=== PATIENT | female | born 1950 | race Two or more races ===

== ENCOUNTER 2020-03-26 13:05 | Outpatient (CLI) | payer OTHER | END 2020-03-26 13:09 | disposition home or self-care (01) | LOC: RAD 13:05 | PROVIDERS: ATTEND Orthopaedic Surgery | DX: M25.551 Pain in right hip (principal); M54.5 Low back pain ==

== ENCOUNTER → 2020-05-01 08:08 | Outpatient (CLI) | payer OTHER | END | disposition home or self-care (01) | LOC: LAB 08:08 | PROVIDERS: ATTEND Orthopaedic Surgery | DX: E56.1 Deficiency of vitamin K (principal); M85.88 Other specified disorders of bone density and structure, other site; E55.9 Vitamin D deficiency, unspecified ==

== ENCOUNTER 2023-06-25 11:03 | Emergency (ER) | payer OTHER ==
[~2023-06-25] VITALS: Ht 154.9 cm; Wt 72.6 kg
[2023-06-25] MEDS ORDERED: COZAAR50 MG PO (11:50)
[2023-06-25] MEDS ORDERED: METFORMIN HCL850 MG (11:50)
[2023-06-25 13:19] LABS: HEMATOCRIT 41.5 % (36.0-45.00); MEAN CORPUSCULAR HEMOGLOBIN 30.3 pg (27.00-32.0); MEAN CORPUSCULAR HGB CONC 33.7 g/dl (32.0-36.0); PLATELET COUNT 318 K/uL (150-450); RED BLOOD COUNT 4.61 M/uL (4.00-6.00); RED CELL DISTRIBUTION WIDTH 14.7 % (11.5-14.5)
[2023-06-25] MEDS ORDERED: XOPENEX CO1.25 MG/0. IH (14:46)
[2023-06-25] MEDS ORDERED: TUSNEL LIQUID178 ML PO (14:46)
[2023-06-25] MEDS ORDERED: ZITHROMAX500 MG PO (14:46)
== END 2023-06-25 14:54 | disposition home or self-care (01) ==
LOC: ER 11:04
PROVIDERS: General Practice
DX: R50.9 Fever, unspecified (principal); Z20.822 Contact with and (suspected) exposure to COVID-19

== ENCOUNTER 2024-07-26 09:32 | Emergency (ER) | payer OTHER ==
[~2024-07-26] VITALS: Ht 152.4 cm; Wt 68.9 kg
[~2024-07-26 09:32] MED LIST: COZAAR50 MG PO; METFORMIN HCL850 MG; TUSNEL LIQUID178 ML PO; XOPENEX CO1.25 MG/0. IH; ZITHROMAX500 MG PO
[2024-07-26] MEDS ORDERED: FAMOTIDINE/PF 20 MG/2 ML VIAL IV PUSH ONE (10:45)
[2024-07-26] MEDS ORDERED: 0.9 % SODIUM CHLORIDE 500 ML IV SCH (10:45)
[2024-07-26] MEDS ORDERED: ONDANSETRON HCL 2 MG/ML VIAL IV ONE (10:45)
[2024-07-26] MEDS ORDERED: FAMOTIDINE/PF 20 MG/2 ML VIAL ONE (10:50)
[2024-07-26] MEDS ORDERED: ONDANSETRON HCL 2 MG/ML VIAL ONE (10:50)
[2024-07-26 11:27] LABS: HEMATOCRIT 43.7 % (36.0-45.00); HEMOGLOBIN 14.8 g/dL (12.0-15.00); MEAN CORPUSCULAR HGB CONC 33.7 g/dl (32.0-36.0); PLATELET COUNT 266 K/uL (150-450); RED BLOOD COUNT 4.92 M/uL (4.00-6.00)
[2024-07-26 11:44] LABS: ALBUMIN 4.1 gm/dL (3.4-5.0); BILIRUBIN TOTAL 0.52 mg/dL (0.3-1.2); CALCIUM 9.2 mg/dL (8.5-10.1); CREATININE SERUM 0.63 mg/dL (0.55-1.02); GFR 93.15; GLOBULINA 3.8 G/DL (2.4-3.5); POTASSIUM 3.8 mEq/L (3.5-5.1); TOTAL PROTEIN 7.9 gm/dL (6.4-8.2)
[2024-07-26] MEDS ORDERED: ACETAMINOPHEN 500 MG GEL..CAP PO ONE (14:41)
== END 2024-07-26 18:23 | disposition home or self-care (01) ==
LOC: ER 09:35
PROVIDERS: Emergency Medicine
DX: R11.10 Vomiting, unspecified (principal); R10.13 Epigastric pain; I10 Essential (primary) hypertension; E11.9 Type 2 diabetes mellitus without complications; Z79.84 Long term (current) use of oral hypoglycemic drugs